=== PATIENT | female | born 1975 | race Caucasian/White ===

== ENCOUNTER 2021-09-13 20:26 | Emergency (ER) | payer MEDICARE, OTHER ==
[~2021-09-13] VITALS: Ht 175.3 cm; Wt 90.8 kg
--- NOTE | 2021-09-13 21:35 | NUR ---
Pt left er, stating she needed to check her car meter and will come back
--- NOTE | 2021-09-13 22:01 | NUR ---
Pt left hospital, seen by provider, stated "I will check my car and come back". Patient in no acute distress.
--- NOTE | 2021-09-13 22:05 | NUR ---
No procedure done
== END 2021-09-13 22:05 | disposition left against medical advice (07) ==
LOC: ER 20:29
DX: F31.0 Bipolar disorder, current episode hypomanic (principal); Z53.29 Procedure and treatment not carried out because of patient's decision for other reasons; J45.909 Unspecified asthma, uncomplicated; Z59.00 Homelessness unspecified
CPT/HCPCS: 93005; A4663